=== PATIENT | male | born 1945 ===

== ENCOUNTER 2024-01-29 15:16 | Outpatient (AMB) | payer MEDICARE, OTHER, SELFPAY ==
[2024-01-29 15:28] VITALS: BP 168/76; PULSE 66; O2SAT 97; BMI 37.6
--- NOTE | 2024-01-29 15:28 | A.OFFVIS_ITS ---
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 In August of this year he underwent total knee replacement by Dr. Wong. Next day after the procedure he was taken to the shower by the certified nursing assistant, unfortunately he was left in his shower unattended, he lost his consciousness and fell out of his wheelchair. He hit the wall and he fractured his femur on the right and after that he had interim medullary vanessa and plate and screws to fix the femur fracture. The patient reports intractable right knee pain since then. She reports minimal mobility of his knee. She reports that he is unable to stand on the right leg. He also reports lower back pain with radiation into the left lower extremity to the level of the left knee but not below that level. He was under care of [facility] where he received several steroid injections into the facet joints. He is scheduled in 2 weeks for yet another facet joint injection. He denied any help from previous facet joint injections. He reports that when he lies down his pain is slightly better. However when he positioned himself sitting or standing his pain is 10/10. He can sleep normally but he can not do activities of daily living can not take care of himself can not function normally. Movements aggravate his pain. He needs walker for minimal ambulation he prefers to use wheelchair because of severe pain. The pain is most severe in the night, the pain in the back is most severe in the morning. He reports flexing forward aggravates pain in the back. In terms of tissue damage he reports his pain is pulsing, throbbing, pounding, stabbing, lancinating, sharp, cutting, lacerating, punishing, killing. He completed multiple sessions of physical therapy. He denies any help from physical therapy. He has stationary bicycle at home and he attempts to exercise on the bicycle however he reports that severe pain in knee prevents him from doing so. He is being prescribed by his primary care physician Dr. Martin multiple medications including Dilaudid 2 mg and buprenorphine patch 7.5 micro g he denies effectiveness of this medications for his pain. He also is taking gabapentin 600 mg t.i.d., he denies the help from this pain. His past medical history significant for coronary artery disease he had a heart attack and history of stents in 2019. He is diabetic and he is on metformin b.i.d. he also has widespread arthritis. Past surgical history significant for stent placement, left knee replacement in 2019 right knee replacement in 2023 following immediate ORIF of femur fracture in the same year. He denies smoking cigarettes does not drink alcohol he denies caffeinated beverages and he denies recreational drugs. [facility] Medical History (Updated 01/29/24 @ 16:21 by Antwon Cat MD) Chronic pain of right knee Atherosclerosis of aorta Type 2 diabetes mellitus with hyperglycemia, with long-term current use of insulin Surgical History (Updated 01/29/24 @ 16:20 by Antwon Cat MD) Total knee replacement status Review of Systems Const Reports no additional complaints ENT Reports Normal hearing present Card Reports as per HPI Resp Reports no additional complaints GI Reports no additional complaints Reports no additional complaints Musc Reports as per HPI Neuro Reports no additional complaints, Reports Normal hearing present, Denies Abnormal speech present, Denies confusion and Denies Sensory deficit (Neuro) Psych Reports no additional complaints and Denies confusion Endo Reports as per HPI Mina/Lymph Reports no additional complaints and Reports other (Patient is currently on Eliquis but he can not stop this Eliquis for the pr) Physical Exam Vital Signs: Last Vital Signs Pulse 66 01/29/24 15:28 BP 168/76 H 01/29/24 15:28 Pulse Ox 97 01/29/24 15:28 Oxygen Delivery Method Room Air 01/29/24 15:28 BMI result Body Mass Index 37.6 Const General: no acute distress; No confusion Nutritional Appearance: well nourished and overweight Orientation/consciousness: patient oriented x3 and No confusion Limitations: physical limitations, ambulation with walker and wheelchair Eyes General: appearance normal, both eyes and all related structures Pupils: Equal, round and reactive pupils present EOM: EOMs intact bilaterally Neck Neck: Yes full ROM Chest Chest palpation & inspection: normal inspection of the chest Resp Effort & Inspection: normal respiratory effort, able to speak in complete sentences, normal respiratory pattern, no audible wheezes and no cough Cardio Jugular venous distension: no JVD GI Inspection: Yes normal to inspection Neuro General: patient oriented x3, gait normal and No confusion Cranial nerves: Yes CN's II-XII intact bilaterally, Yes Equal, round and reactive pupils present, Yes Normal hearing present and Yes Ability to bilaterally elevate shoulders present Speech: No Abnormal speech present Gait exam (Neuro): Normal gait present Motor exam (neuro): 5/5 motor strength present throughout Sensory Exam: No Sensory deficit (Neuro) Extrem Other: Both knees on inspection similar in appearance. Slight skin edema could be noted on the right knee. No redness no swelling no pathological discharge the both scars very well-healed. Range of motion of the right knee is severely limited to no more than 90 degrees. Severe tenderness on palpation in projection of the lateral and inferior patellar area. General: No pedal edema Psych Speech and movement: Normal speech and movement present Affect: normal affect Attitude: cooperative Thought process: Normal thought process present Thought content: Normal thought content present Insight: Good insight present (Psych) Judgement: Good judgement present (Psych) Assessment & Plan Assessment & Plan (1) Spondylosis of lumbar region without myelopathy or radiculopathy: Code(s): M47.816 - Spondylosis without myelopathy or radiculopathy, lumbar region Category: Medical (2) Right knee pain: Code(s): M25.561 - Pain in right knee Category: Medical (3) Status post total knee replacement, right: Code(s): Z96.651 - Presence of right artificial knee joint Category: Surgical (4) Status post closed fracture of right femur: Code(s): Z87.81 - Personal history of (healed) traumatic fracture Category: Medical (5) Chronic pain syndrome: Code(s): G89.4 - Chronic pain syndrome Category: Medical Plan We agreed that I will start the treatment of this patient from genicular nerve block. The genicular nerve block will be scheduled without sedation on the right. If genicular nerve block will not help this patient does I will attempt to perform femoral nerve block in the attempt to alleviate his knee pain. If this will not be helpful for his pain control spinal cord stimulator Vine could be imply at the right lateral lumbar gutter to help his pain in the right knee Patient Instructions: I here by testify that I spent 48 minutes in conversation with this patient as well as planning his care and organizing this note. Coding Level of Care Code New Pt Level 4 (84585) Diagnoses Spondylosis of lumbar region without myelopathy or radiculopathy M47.816 Right knee pain M25.561 Status post total knee replacement, right Z96.651 Status post closed fracture of right femur Z87.81 Chronic pain syndrome G89.4
--- OUTSIDE RECORDS SUMMARY | 2024-02-04 20:58 | XMS_ITS | Continuity of Care Document ---
Author Organization [facility] Address [address] [place] [address] [place] [address]- Care Team Providers Care Pad Cutter Name Role Phone Not on Staff, PCP Primary Care Physician Unavail able [place] [facility] [place] 12/23/23 - 01/22/24 [facility] [address] [place] [address] Drive [address] [place] [address]- Encounter Type: Triage Allergies, Adverse Reactions, Alerts Substance Criticality Severity Reaction Reaction Severity Status penicillin Active Medications acetaminophen 325 mg oral tablet 975 mg, By Mouth, Every 6 hours, PRN, Refills 0, Maintenance, Pain , Mild, 05/13/19 10:08:00 AM EDT Start Date: 05/13/19 Status: Ordered Repeat number: 1 atorvastatin 40 mg oral tablet 1 tablet = 40 mg, TAKE 1 TABLET BY MOUTH NIGHTLY AT BEDTIME Start Date: 11/22/21 Status: Ordered Repeat number: 1 duloxetine 60 mg oral enteric coated capsule TAKE 1 CAPSULE BY MOUTH EVERY DAY Start Date: 11/22/21 Status: Ordered Repeat number: 1 Eliquis 5 mg oral tablet TAKE 1 TABLET BY MOUTH TWICE A DAY Start Date: 11/22/21 Status: Ordered Repeat number: 1 furosemide 20 mg oral tablet 20 mg, 1, tablet, By Mouth, Daily, Refills 0, Maintenance, 01/23/23 4:38:00 PM EST, Partial fill upon patient request if the prescription is for a schedule II opioid drug. Start Date: 01/23/23 Status: Ordered Repeat number: 1 Gabapentin By Mouth, 0 Refills, Maintenance, 12/12/23 1:52:00 PM EDT, Partial fill upon patient request if theprescription is for a schedule II opioid drug. Start Date: 12/12/23 Status: Ordered Repeat number: 1 Glucosamine By Mouth, 0 Refills, Maintenance, 12/12/23 1:53:00 PM EDT, Partial fill upon patient request if theprescription is for a schedule II opioid drug. Start Date: 12/12/23 Status: Ordered Repeat number: 1 hydrochlorothiazide 25 mg oral tablet 25 mg, 1, tablet, TAKE 1 TABLET BY MOUTH EVERY DAY Start Date: 11/22/21 Status: Ordered Repeat number: 1 Jardiance 10 mg oral tablet TAKE 1 TABLET BY MOUTH EVERY DAY Start Date: 11/22/21 Status: Ordered Repeat number: 1 MetFORMIN (Eqv-Glucophage XR) 500 mg oral tablet, extended release TAKE 1 TABLET BY MOUTH TWICE A DAY Start Date: 11/22/21 Status: Ordered Repeat number: 1 Multi Vitamin+ 0 Refills, Maintenance, 01/23/23 4:37:00 PM EST, Partial fill upon patient request if the prescription is for a schedule II opioid drug. Start Date: 01/23/23 Status: Ordered Repeat number: 1 [place]-3 Fish Oil By Mouth, 0 Refills, Maintenance, 01/23/23 4:38:00 PM EST, Partial fill upon patient request if theprescription is for a schedule II opioid drug. Start Date: 01/23/23 Status: Ordered Repeat number: 1 Simvastatin By Mouth, Daily before dinner, 0 Refills, Maintenance, 12/12/23 1:53:00 PM EDT, Partial fill upon patient request if the prescription is for a schedule II opioid drug. Start Date: 12/12/23 Status: Ordered Repeat number: 1 tamsulosin 0.4 mg oral capsule TAKE 1 CAPSULE BY MOUTH EVERYDAY AT BEDTIME Start Date: 11/22/21 Status: Ordered Repeat number: 1 traZODone 50 mg oral tablet 50 mg, 1, tablet, TAKE 1 TO 2 TABLETS BY MOUTH AT BEDTIME NEEDED Start Date: 11/22/21 Status: Ordered Repeat number: 1 Viagra 100 mg oral tablet 1 tablet = 100 mg, By Mouth, Daily, 0 Refills, Maintenance, 01/23/23 4:39:00 PM EST, Partial fill upon patient request if the prescription is for a schedule II opioid drug. Start Date: 01/23/23 Status: Ordered Repeat number: 1 Vitamin D3 oral tablet 1 tablet = 10 mcg, By Mouth, Daily, 0 Refills, Maintenance, 01/23/23 4:38:00 PM EST, Partial fill upon patient request if the prescription is for a schedule II opioid drug. Start Date: 01/23/23 Status: Ordered Repeat number: 1 Problem List Condition Confirmation Course Effective Dates Status Health St atus Informant Obese class II Confirmed Active Social History Social History Type Response Smoking Status Former smoker, quit more than 30 days ago; Tobacco user in household: No; Type: Cigarettes; Other: Quit 1979; entered on: 08/18/19 Sex Sex Representation Male (finding) Patient Care team information Care Team Personnel Name: Octavia Banda RN Position: [facility] SN RN Member Role: Primary Care Nurse Name: Jesús Pinto MD Position: [facility] Renal MD Member Role: Lifetime Consulting Physician Address: [address] [place] [address] [address] [place] [address]- Telecom: Name: Easton Akers RN Position: [facility] RN Member Role: Primary Care Nurse Name: Kimberly Thompson RN Position: [facility] [place] No Tools Member Role: Primary Care Nurse Name: Not on Staff, PCP Position: [facility] Physician (General Medicine) Member Role: PCP Name: Yue Barney RN Position: [facility] RN Member Role: Primary Care Nurse Care Team Related Persons Name: MAZIN EPPERSON Insurance Providers Guarantor name: MARTINA GRANTPAPITO Health Plan Information #: 1 Payer: MEDICARE PART B OUTPT Member Number: NA Policy Number: NA Group Number: NA Health Plan Information #: 2 Payer: [facility] Member Number: NA Policy Number: NA Group Number: NA
--- OUTSIDE RECORDS SUMMARY | 2024-02-04 20:58 | XMS_ITS | Continuity of Care Document ---
Author Organization [facility] Address [address] [place], [place] [address]ru[address]ina elina, [address] [place] [address]- Care Team Providers Care Dock Operator Name Role Phone Not on Staff, PCP Primary Care Physician Unavail able Encounter [facility] [place](s[place] 12/12/23 - 01/11/24 [facility] [address] [place] [address] [address] [place], [place] [address] Attending Physician: Micha Morgan Admitting Physician: Micha Morgan Referring Physician: Micha Morgan Referring Physician: Orquidea Mg Encounter Type: Triage Allergies, Adverse Reactions, Alerts [...] Date: 01/23/23 Status: Ordered Repeat number: 1 [place]-3 Fish Oil By Mouth, 0 Refills, Maintenance, [...] on: 08/18/19 Sex Sex Representation Male (finding) Radiology * Event Display: MRI Spine, Non- Authored Date: * Event Display: MRI Spine, Non- BH Authored Date: * Event Display: X-Ray Hip/Groin, Non- Authored Date: * Event Display: X-Ray Hip/Groin, Non- Authored Date: Patient Care team information Care Team Personnel Name: Octavia Banda RN Position: [facility] SN RN Member Role: Primary Care Nurse Name: Jesús Pinto MD Position: [facility] Renal MD Member Role: Lifetime Consulting Physician Address: [address] [place] [address] [address] [facility] [place] [id number] Telecom: Name: Easton Akers RN Position: [facility] RN Member Role: Primary Care Nurse Name: Kimberly Thompson RN Position: [facility] [place] No Tools Member Role: Primary Care Nurse Name: Not on Staff, PCP Position: [facility] Physician (General Medicine) Member Role: PCP Name: Yue Barney RN Position: [facility] RN Member Role: Primary Care Nurse Care Team Related Persons Name: MAZIN EPPERSON Insurance Providers Guarantor name: MARTINA EPPERSON Health Plan Information #: 1 Payer: MEDICARE PART B OUTPT Member Number: NA Policy Number: NA Group Number: NA Health Plan Information #: 2 Payer: [facility] Member Number: NA Policy Number: NA Group Number: NA
== END 2024-01-29 16:20 | disposition home or self-care (01) ==
PROVIDERS: PCP Family Medicine; Visit Provider Anesthesiology
DX: M47.816 Spondylosis without myelopathy or radiculopathy, lumbar region (principal); M25.561 Pain in right knee; Z96.651 Presence of right artificial knee joint; Z87.81 Personal history of (healed) traumatic fracture; G89.4 Chronic pain syndrome
CPT/HCPCS: 99204

== ENCOUNTER → 2024-01-29 15:16 | Outpatient (BNVA) | payer MEDICARE, OTHER, SELFPAY | PROVIDERS: PCP Family Medicine; Visit Provider Anesthesiology | DX: M25.561 Pain in right knee (principal); G89.4 Chronic pain syndrome; M47.816 Spondylosis without myelopathy or radiculopathy, lumbar region; Z87.81 Personal history of (healed) traumatic fracture; Z96.651 Presence of right artificial knee joint | CPT/HCPCS: 99202 ==

== ENCOUNTER 2024-04-21 06:42 | Outpatient (REF) | payer MEDICARE, OTHER, SELFPAY ==
--- NOTE | ~2024-04-21 | FL_ITS ---
EXAMINATION: XR FLUOROSCOPY WITH IMAGES CLINICAL INFORMATION: Right knee pain. Pain management procedure. COMPARISON: None available. TECHNIQUE: Fluoroscopy provided to: Dr. Cat Fluoroscopy time: 0.1 minutes DAP: 0.0358 mGycm2 Images: 2 FINDINGS: 2 images obtained during what appears to be the injection of as pes bursa, right knee. FL/FL guidance in treatment room IMPRESSION: Fluoroscopic guidance. Electronically signed by: Francisco Javier Delaney MD 04/22/2024 01:36 PM IVAN
== END 2024-04-21 06:43 | disposition home or self-care (01) ==
LOC: CF 06:42
PROVIDERS: Visit Provider Anesthesiology
DX: T84.84XA Pain due to internal orthopedic prosthetic devices, implants and grafts, initial encounter (principal); G89.4 Chronic pain syndrome; Z96.651 Presence of right artificial knee joint; Z87.81 Personal history of (healed) traumatic fracture
CPT/HCPCS: 64450; 64454; J0736; J2003; J2795

== ENCOUNTER 2024-04-21 14:24 | Outpatient (AMB) | payer MEDICARE, OTHER, SELFPAY ==
--- NOTE | 2024-04-21 14:31 | MHC.OFFVIS ---
Vital Signs 04/21/24 14:57 04/21/24 16:10 BP 125/65 156/69 H Blood Pressure Location Rt brachial Rt brachial Position Sitting Sitting Pulse 82 72 Pulse Source Pulse Oximeter Pulse Oximeter Pulse Oximetry (%) 96 100 Oxygen Delivery Method Room Air Room Air Comment Pre-Op Post-Op Intake Visit Reasons: RIGHT DIAGNOSTIC GENICULAR NERVE BLOCK Allergies No Known Allergies Allergy (Verified 01/29/24 15:28) PFSH Medical History (Updated 01/29/24 @ 16:21 by Antwon Cat MD) Chronic pain of right knee Atherosclerosis of aorta Type 2 diabetes mellitus with hyperglycemia, with long-term current use of insulin Surgical History (Updated 01/29/24 @ 16:20 by Antwon Cat MD) Total knee replacement status Physical Exam Vital Signs: Last Vital Signs Pulse 82 04/21/24 14:57 BP 125/65 04/21/24 14:57 Pulse Ox 96 04/21/24 14:57 Oxygen Delivery Method Room Air 04/21/24 14:57 Assessment & Plan Assessment & Plan (1) Chronic pain syndrome: Code(s): G89.4 - Chronic pain syndrome Category: Medical (2) Status post closed fracture of right femur: Code(s): Z87.81 - Personal history of (healed) traumatic fracture Category: Medical (3) Status post total knee replacement, right: Code(s): Z96.651 - Presence of right artificial knee joint Category: Surgical (4) Right knee pain: Code(s): M25.561 - Pain in right knee Category: Medical Plan Infrapatellar saphenous genicular nerve block. Patricio is very pleasant 78 years old gentleman who presented today in the operating room for performance of the right lower extremity genicular nerve blocks. He is suffering from severe debilitating pain in the left knee after he received total knee replacement, fell on his knee immediately after the procedure and fractured his distal femur and went for repair of the femur fracture with lateral plate and screws. Because of the presence of the extensive hardware in his knee we administered 900 mg of clindamycin approximately 30 minutes before the procedure intravenously. Informed consent was thoroughly explained to the patient before the procedure.? The patient came to the operating room.? He was positioned supine on operating table with a gel roll under his right lower extremity.? Time-out was performed delineating correct site and side of the procedure, nature of the injection, name and date of of the patient. Anterior lateral and medial surfaces of the knee and adjacent areas of the hip and lower leg were prepped with ChloraPrep and draped with sterile self adhesive utility towels.? C-arm was brought over the operating field the picture of the right knee was demonstrated on the screen. Unfortunately suprapatellar saphenous and lateral genicular nerve presumable locations were obscured by hardware plate and the screws which was positioned alongside lateral surface or the lower femur with the screws projecting through the entire thickness of the lower femur bone and protruding on the medial surface of the femur bone. this hardware made impossible to perform suprapatellar saphenous nerve block and lateral genicular nerve block. The decision was made to perform infrapatellar saphenous nerve block only. The point of interest was delineated as confluence of the silhouette of the medial diaphysis of the tibia with metaphysis and epiphysis of the medial tibia. The projection of the point of interest to the skin was injected with small amount of lidocaine 2% mixed with ropivacaine 0.5%. After that 22 gauge 3-1/2 inch needle was inserted through the skin wheal and it was advanced toward the bone surface under anterior posterior and lateral views. When on lateral view the tip of the needle was positioned in mid shaft of the projection of the bone injection of the ropivacaine 0.5% 2 cc was performed into the needle. Upon completion of the injection the needle was removed sterile Band-Aid was applied. The patient was tolerating procedure well. Orders: Orders FL guidance in treatment room Today M25.561 - Pain in right knee Coding Level of Care Code Procedure Only Diagnoses Chronic pain syndrome G89.4 Status post closed fracture of right femur Z87.81 Status post total knee replacement, right Z96.651 Right knee pain M25.561
[2024-04-21 14:57] VITALS: BP 125/65; PULSE 82; O2SAT 96
[2024-04-21 16:10] VITALS: BP 156/69; PULSE 72; O2SAT 100
--- OUTSIDE RECORDS SUMMARY | 2024-04-21 18:04 | XMS_ITS | Clinical Summary ---
Author Organization [employer] Address [address] [place] [address] [address] [place] [address] Care Team Providers Care Fusing Furnace Loader Name Role Phone Unavailable Primary Care Provider Unavailabl e Social History Tobacco Use Types Packs/Day Years Used Date Smoking Tobacco: Never Assessed Sex and Gender Information Value Date Recorded Sex Assigned at Male 08/26/2023 12:54 PM EDT Legal Sex Male 12:53 PM EDT Gender Identity Male 08/26/2023 12:54 PM EDT Sexual Orientation Straight 08/26/2023 12 :54 PM EDT Plan of Treatment Health Maintenance Due Date Last Done Comments Dental Oral Exam 1946 Dental Prophylaxis 1946 Dental X-Ray: Bitewings 1946 Dental X-Ray: Full Mouth 1946 Depression Screening 1946 Lipid Panel 1946 SDOH Screening 1946 Alcohol/Substance Use Screening 1958 Tobacco Screening 1958 Hepatitis C Screening 1964 RSV Patients and Patients Aged 60 years or older (1 - 1-dose 75+ series) 2021 DTaP/Tdap/Td Vaccines (2 - Td or Tdap) 06/19/2023 06/18/2013 COVID-19 Vaccine ( season) 2023 05/09/2023, 11/20/2022, 07/02/2022, Additional history exists Influenza Vaccine (#1) 2023 , 12/06/2020, 12/06/2020, Additional history exists Pneumococcal Vaccine: 50+ Years Completed 10/25/2014, 06/18/2013 Zoster Vaccines Completed 09/28/2019, 03/29, 07/15/2011 HIB Vaccines Aged Out No longer eligi ble based on patient's age to complete this topic HPV Vaccines Aged Out No longer eligi ble based on patient's age to complete this topic Hepatitis A Vaccines Aged Out No long er eligible based on patient's age to complete this topic Hepatitis B Vaccines Aged Out No long er eligible based on patient's age to complete this topic IPV Vaccines Aged Out No longer eligi ble based on patient's age to complete this topic Meningococcal Vaccine Aged Out No jhoana beltran eligible based on patient's age to complete this topic RSV under 20 months Aged Out No longe r eligible based on patient's age to complete this topic Rotavirus Vaccines Aged Out No longer eligible based on patient's age to complete this topic Insurance [place]IC[place] [address] [place] [id number]
== END 2024-04-21 16:11 | disposition home or self-care (01) ==
LOC: HO.PMCPRC 14:24
PROVIDERS: PCP Family Medicine; Visit Provider Anesthesiology
DX: M25.561 Pain in right knee (principal); G89.4 Chronic pain syndrome; Z87.81 Personal history of (healed) traumatic fracture; Z96.651 Presence of right artificial knee joint
CPT/HCPCS: 64454

== ENCOUNTER 2024-04-27 15:07 | Outpatient (AMB) | payer MEDICARE, OTHER, SELFPAY ==
--- NOTE | 2024-04-27 15:15 | A.OFFVIS_ITS ---
Vital Signs 04/27/24 15:20 Height 5 ft 7 in BMI Reason not done Patient refused/unable BP 178/80 H Blood Pressure Location Rt brachial Position Sitting Pulse 80 Pulse Source Pulse Oximeter Intake Visit Reasons: RIGHT DIAGNOSTIC GENICULAR NERVE BLOCK Intake Note: Pain today 10/10 Sales Marketing Coordinator Required: No Accompanied by: Other Relationship Allergies No Known Allergies Allergy (Verified 04/27/24 15:19) HPI Comments Details: Patricio (Klip) is back in my office after diagnostic genicular/ infrapatellar saphenous nerve block. It was the only nerve available to be injected after examination of the hardware in his knee under x-ray. The procedure gave patient overall some pain relief however it was not more than 50%. We discussed today possibility of treating his pain with stimulation of the femoral nerve. I explained to him that I need to perform femoral nerve or saphenous nerve block in the adductor canal in the order to test those possibilities. Alternatively treatment with spinal cord stimulation for this patient is suffering from Complex regional pain syndrome of the right lower extremity after extensive surgery on his right knee and femur fractures seem to be appropriate way of treating his pain. Prior: complains on severe pain in the right knee. In August of this year he underwent total knee replacement by Dr. Wong. Next day after the procedure he was taken to the shower by the nursing admin, unfortunately he was left in his shower unattended, he lost his consciousness and fell out of his wheelchair. He hit the wall and he fractured his femur on the right and after that he had plate and screws to fix the femur fracture. The patient reports intractable right knee pain since then. She reports minimal mobility of his knee. She reports that he is unable to stand on the right leg. He also reports lower back pain with radiation into the left lower extremity to the level of the left knee but not below that level. He was under care of [facility] where he received several steroid injections into the facet joints. He is scheduled in 2 weeks for yet another facet joint injection. He denied any help from previous facet joint injections. He reports that when he lies down his pain is slightly better. However when he positioned himself sitting or standing his pain is 10/10. He completed multiple sessions of physical therapy. He denies any help from physical therapy. He has stationary bicycle at home and he attempts to exercise on the bicycle however he reports that severe pain in knee prevents him from doing so. On Eliquis for cardiac problems. [facility] Medical History (Updated 04/27/24 @ 15:53 by Antwon Cat MD) Chronic pain of right knee Atherosclerosis of aorta Type 2 diabetes mellitus with hyperglycemia, with long-term current use of insulin Surgical History (Updated 01/29/24 @ 16:20 by Antwon Cat MD) Total knee replacement status Review of Systems Const All systems reviewed & are unremarkable except as noted in HPI and below ENT Reports Normal hearing present Neuro Reports Normal hearing present, Denies Abnormal speech present, Denies confusion and Denies Sensory deficit (Neuro) Psych Denies confusion Physical Exam Vital Signs: Last Vital Signs Pulse 80 04/27/24 15:20 BP 178/80 H 04/27/24 15:20 Const General: no acute distress; No confusion Nutritional Appearance: well nourished and overweight Orientation/consciousness: patient oriented x3 and No confusion Limitations: physical limitations, ambulation with walker and wheelchair Eyes General: appearance normal, both eyes and all related structures Pupils: Equal, round and reactive pupils present EOM: EOMs intact bilaterally Neck Neck: Yes full ROM Chest Chest palpation & inspection: normal inspection of the chest Resp Effort & Inspection: normal respiratory effort, able to speak in complete sentences, normal respiratory pattern, no audible wheezes and no cough Cardio Jugular venous distension: no JVD GI Inspection: Yes normal to inspection Neuro General: patient oriented x3, gait normal and No confusion Cranial nerves: Yes CN's II-XII intact bilaterally, Yes Equal, round and reactive pupils present, Yes Normal hearing present and Yes Ability to bilaterally elevate shoulders present Speech: No Abnormal speech present Gait exam (Neuro): Normal gait present Motor exam (neuro): 5/5 motor strength present throughout Sensory Exam: No Sensory deficit (Neuro) Extrem Other: Both knees on inspection similar in appearance. Slight skin edema could be noted on the right knee. No redness no swelling no pathological discharge the both scars very well-healed. Range of motion of the right knee is severely limi joan to no more than 90 degrees. Severe tenderness on palpation in projection of the lateral and inferior patellar area. General: No pedal edema Psych Speech and movement: Normal speech and movement present Affect: normal affect Attitude: cooperative Thought process: Normal thought process present Thought content: Normal thought content present Insight: Good insight present (Psych) Judgement: Good judgement present (Psych) Assessment & Plan Assessment & Plan (1) Chronic pain syndrome: Code(s): G89.4 - Chronic pain syndrome Category: Medical (2) Status post closed fracture of right femur: Code(s): Z87.81 - Personal history of (healed) traumatic fracture Category: Medical (3) Status post total knee replacement, right: Code(s): Z96.651 - Presence of right artificial knee joint Category: Surgical (4) Right knee pain: Code(s): M25.561 - Pain in right knee Category: Medical (5) Complex regional pain syndrome of right lower extremity: Code(s): G90.521 - Complex regional pain syndrome I of right lower limb Category: Medical Plan The pain of the patient remains 10/10 any time he attempts to walk. When he is at rest his pain is 2 to 3/10. He wants to be active, he tries to exercise with recliner bicycle. However severe pain during the exercise does not allow him to exercise for a long time. He had extensive physical therapy. He continues to do home exercise programs after physical therapy. Infrapatellar saphenous/genicular nerve block resulted in pain improvement less than 50%. The pain diary is filed in the chart. I offered the patient femoral nerve block diagnostic in the order to prepare him for femoral nerve stimulation to help his pain. If the femoral nerve block will not result in good pain relief I will consider [place] scientific spinal cord stimulator in lumbar gutter positioned to treat Complex regional pain syndrome of the right lower extremity. Today I explained to him [facility] psychological evaluation brochure was given. They will be in contact with [facility] to schedule psychological evaluation. Patient Instructions: I here by testify that I spent 40 minutes in conversation with this patient as well as planning his care and organizing this note. Coding Level of Care Code Est Pt Level 5 (62695) Diagnoses Chronic pain syndrome G89.4 Status post closed fracture of right femur Z87.81 Status post total knee replacement, right Z96.651 Right knee pain M25.561 Complex regional pain syndrome of right lower extremity G90.521
[2024-04-27 15:20] VITALS: BP 178/80; PULSE 80
--- OUTSIDE RECORDS SUMMARY | 2024-04-27 18:02 | XMS_ITS | Clinical Summary ---
Author Organization [employer] Address [address] [place] [address] [address] [place] [address] Care Team Providers Care Tight Rope Walker Name Role Phone Unavailable Primary Care Provider [...] age to complete this topic Insurance [place] [address] [place] [phone]
== END 2024-04-27 15:41 | disposition home or self-care (01) ==
PROVIDERS: PCP Family Medicine; Visit Provider Anesthesiology
DX: G89.4 Chronic pain syndrome (principal); M25.561 Pain in right knee; Z87.81 Personal history of (healed) traumatic fracture; Z96.651 Presence of right artificial knee joint; G90.521 Complex regional pain syndrome I of right lower limb
CPT/HCPCS: 99215

== ENCOUNTER → 2024-04-27 15:08 | Outpatient (BNVA) | payer MEDICARE, OTHER, SELFPAY | PROVIDERS: PCP Family Medicine; Visit Provider Anesthesiology | DX: M25.561 Pain in right knee (principal); G90.521 Complex regional pain syndrome I of right lower limb; G89.4 Chronic pain syndrome; Z96.651 Presence of right artificial knee joint; Z87.81 Personal history of (healed) traumatic fracture | CPT/HCPCS: 99212 ==

== ENCOUNTER 2024-05-19 06:24 | Outpatient (REF) | payer MEDICARE, OTHER, SELFPAY | END 2024-05-19 06:25 | disposition home or self-care (01) | LOC: CF 06:24 | PROVIDERS: Visit Provider Anesthesiology | DX: G89.4 Chronic pain syndrome (principal); M25.561 Pain in right knee; G90.521 Complex regional pain syndrome I of right lower limb; Z96.651 Presence of right artificial knee joint; Z87.81 Personal history of (healed) traumatic fracture | CPT/HCPCS: 64447; J2795 ==

== ENCOUNTER 2024-05-19 12:39 | Outpatient (AMB) | payer MEDICARE, OTHER, SELFPAY ==
[2024-05-19 13:01] VITALS: BP 145/83; PULSE 67; O2SAT 98
--- NOTE | 2024-05-19 13:01 | MHC.OFFVIS ---
Vital Signs 05/19/24 13:01 05/19/24 13:21 BP 145/83 H 149/75 H Blood Pressure Location Lt brachial Lt brachial Position Sitting Sitting Pulse 67 65 Pulse Source Pulse Oximeter Pulse Oximeter Pulse Oximetry (%) 98 98 Oxygen Delivery Method Room Air Room Air Comment Pre-Procedure Post-Procedure Intake Visit Reasons: RIGHT DIAGNOSTIC FEMORAL NERVE BLOCK Allergies No Known Allergies Allergy (Verified 04/27/24 15:19) [facility] Medical History (Updated 04/27/24 @ 15:53 by Antwon Cat MD) Chronic pain of right knee Atherosclerosis of aorta Type 2 diabetes mellitus with hyperglycemia, with long-term current use of insulin Surgical History (Updated 01/29/24 @ 16:20 by Antwon Cat MD) Total knee replacement status Physical Exam Vital Signs: Last Vital Signs Pulse 67 05/19/24 13:01 BP 145/83 H 05/19/24 13:01 Pulse Ox 98 05/19/24 13:01 Oxygen Delivery Method Room Air 05/19/24 13:01 Assessment & Plan Assessment & Plan (1) Chronic pain syndrome: Code(s): G89.4 - Chronic pain syndrome Category: Medical (2) Status post closed fracture of right femur: Code(s): Z87.81 - Personal history of (healed) traumatic fracture Category: Medical (3) Status post total knee replacement, right: Code(s): Z96.651 - Presence of right artificial knee joint Category: Surgical (4) Right knee pain: Code(s): M25.561 - Pain in right knee Category: Medical (5) Complex regional pain syndrome of right lower extremity: Code(s): G90.521 - Complex regional pain syndrome I of right lower limb Category: Medical Plan Right femoral nerve block ultrasound-guided. After obtaining informed consent the patient was brought onto the examination bed, his anterior lateral right hip and right groin were prepped with ChloraPrep twice. Time-out was performed. Sterile self adhesive utility towels were used to delineate the filled. After the sterilely draped ultrasound probe was brought onto the field and picture of the femoral nerve and femoral artery were demonstrated on the screen. The 22 gauge 100 mm needle was stim was inserted extra anatomically next to the ultrasound probe in in plane fashion and was advanced to were the femoral nerve under live direct vision. When the tip of the needle was in the vicinity of the femoral nerve injection of the 2 cc of normal saline was performed demonstrating the spread of the fluid around the nerve. After that injection of the ropivacaine 0.5% mixed 6 cc was performed into the needles vicinity. Upon completion of the injection needle was withdrawn, sterile Band-Aid was applied. The patient tolerated the procedure well. Orders: Orders FL guidance in treatment room Today Z87.81 - Personal history of (healed) traumatic fracture Coding Level of Care Code Procedure Only Diagnoses Chronic pain syndrome G89.4 Status post closed fracture of right femur Z87.81 Status post total knee replacement, right Z96.651 Right knee pain M25.561 Complex regional pain syndrome of right lower extremity G90.521
[2024-05-19 13:21] VITALS: BP 149/75; PULSE 65; O2SAT 98
== END 2024-05-19 13:29 | disposition home or self-care (01) ==
LOC: HO.PMCPRC 12:39
PROVIDERS: PCP Family Medicine; Visit Provider Anesthesiology
DX: M25.561 Pain in right knee (principal); G89.4 Chronic pain syndrome; Z87.81 Personal history of (healed) traumatic fracture; Z96.651 Presence of right artificial knee joint; G90.521 Complex regional pain syndrome I of right lower limb
CPT/HCPCS: 64447

== ENCOUNTER 2024-05-25 15:12 | Outpatient (AMB) | payer MEDICARE, OTHER, SELFPAY ==
--- NOTE | 2024-05-25 15:16 | MHC.OFFVIS ---
Vital Signs 05/25/24 15:18 Height 5 ft 7 in BMI Reason not done Patient refused/unable BP 156/70 H Blood Pressure Location Lt brachial Position Sitting Respiration 16 Pulse 61 Pulse Source Pulse Oximeter Pulse Oximetry (%) 98 Oxygen Delivery Method Room Air Intake Visit Reasons: RIGHT DIAGNOSTIC FEMORAL NERVE BLOCK Wide Area Network Administrator Required: No Allergies No Known Allergies Allergy (Verified 05/25/24 15:20) Medication List - Last Reconciled 05/25/24 by Florencia Beltran LPN apixaban (Eliquis) 5 mg PO BID atorvastatin 40 mg PO DAILY fentanyl 25 mcg/hr 1 patch topical Q3D furosemide 20 mg PO DAILY lidocaine 5% 1 patch topical DAILY metformin ER 500 mg PO BID naloxone 4 mg/actuation intranasal sertraline 50 mg PO DAILY tamsulosin 0.8 mg PO DAILY HPI Comments Details: Patricio Padron) is back in my office after diagnostic femoral nerve block. He reported today that after femoral nerve block he received more than 55% pain relief for the next 24 hours after the procedure. He reported improved mobility for this 24 hours and he finally was able to move his right lower extremity on his own without the help of his . We discussed today possibility of treating his pain with PNS cure on X at femoral nerve positioned on the right. I also discussed with him possibility of treatment of his right knee pain with spinal cord stimulator [employer] positioned in lumbar gutter. We agreed that we will try Curonix PNS 1st. Results of genicular/ infrapatellar saphenous nerve block. It was the only nerve available to be injected after examination of the hardware in his knee under x-ray. The procedure gave patient overall some pain relief however it was not more than 50%. Prior: complains on severe pain in the right knee. In August of this year he underwent total knee replacement by Dr. Wong. Next day after the procedure he was taken to the shower by the nursing staffing coordinator, unfortunately he was left in his shower unattended, he lost his consciousness and fell out of his wheelchair. He hit the wall and he fractured his femur on the right and after that he had plate and screws to fix the femur fracture. The patient reports intractable right knee pain since then. She reports minimal mobility of his knee. She reports that he is unable to stand on the right leg. He also reports lower back pain with radiation into the left lower extremity to the level of the left knee but not below that level. He was under care of [facility] where he received several steroid injections into the facet joints. He is scheduled in 2 weeks for yet another facet joint injection. He denied any help from previous facet joint injections. He reports that when he lies down his pain is slightly better. However when he positioned himself sitting or standing his pain is 10/10. He completed multiple sessions of physical therapy. He denies any help from physical therapy. He has stationary bicycle at home and he attempts to exercise on the bicycle however he reports that severe pain in knee prevents him from doing so. On Eliquis for cardiac problems. [facility] Medical History (Updated 04/27/24 @ 15:53 by Antwon Cat MD) Chronic pain of right knee Atherosclerosis of aorta Type 2 diabetes mellitus with hyperglycemia, with long-term current use of insulin Surgical History (Updated 01/29/24 @ 16:20 by Antwon Cat MD) Total knee replacement status Review of Systems Const All systems reviewed & are unremarkable except as noted in HPI and below ENT Reports Normal hearing present Neuro Reports Normal hearing present, Denies Abnormal speech present, Denies confusion and Denies Sensory deficit (Neuro) Psych Denies confusion Physical Exam Vital Signs: Last Vital Signs Pulse 61 05/25/24 15:18 Resp 16 05/25/24 15:18 BP 156/70 H 05/25/24 15:18 Pulse Ox 98 05/25/24 15:18 Oxygen Delivery Method Room Air 05/25/24 15:18 Const General: no acute distress; No confusion Nutritional Appearance: well nourished and overweight Orientation/consciousness: patient oriented x3 and No confusion Limitations: physical limitations, ambulation with walker and wheelchair Eyes General: appearance normal, both eyes and all related structures Pupils: Equal, round and reactive pupils present EOM: EOMs intact bilaterally Neck Neck: Yes full ROM Chest Chest palpation & inspection: normal inspection of the chest Resp Effort & Inspection: normal respiratory effort, able to speak in complete sentences, normal respiratory pattern, no audible wheezes and no cough Cardio Jugular venous distension: no JVD GI Inspection: Yes normal to inspection Neuro General: patient oriented x3, gait normal and No confusion Cranial nerves: Yes CN's II-XII intact bilaterally, Yes Equal, round and reactive pupils present, Yes Normal hearing present and Yes Ability to bilaterally elevate shoulders present Speech: No Abnormal speech present Gait exam (Neuro): Normal gait present Motor exam (neuro): 5/5 motor strength present throughout Sensory Exam: No Sensory deficit (Neuro) Extrem Other: Both knees on inspection similar in appearance. Slight skin edema could be noted on the right knee. No redness no swelling no pathological discharge the both scars very well-healed. Range of motion of the right knee is severely limited to no more than 90 degrees. Severe tenderness on palpation in projection of the lateral and inferior patellar area. General: No pedal edema Psych Speech and movement: Normal speech and movement present Affect: normal affect Attitude: cooperative Thought process: Normal thought process present Thought content: Normal thought content present Insight: Good insight present (Psych) Judgement: Good judgement present (Psych) Assessment & Plan Assessment & Plan (1) Chronic pain syndrome: Code(s): G89.4 - Chronic pain syndrome Category: Medical (2) Status post closed fracture of right femur: Code(s): Z87.81 - Personal history of (healed) traumatic fracture Category: Medical (3) Status post total knee replacement, right: Code(s): Z96.651 - Presence of right artificial knee joint Category: Surgical (4) Right knee pain: Code(s): M25.561 - Pain in right knee Category: Medical (5) Complex regional pain syndrome of right lower extremity: Code(s): G90.521 - Complex regional pain syndrome I of right lower limb Category: Medical Plan The pain of the patient remains 10/10 any time he attempts to walk. Now he reports significant pain at rest as well. He wants to be active, he tries to exercise with recliner bicycle. However severe pain during the exercise does not allow him to exercise for a long time. He had extensive physical therapy. He continues to do home exercise programs after physical therapy. Infrapatellar saphenous/genicular nerve block resulted in pain improvement less than 50%. The pain diary is filed in the chart. Femoral nerve block resulted in more than 55% pain improvement for the 24 hours after the injection. After that the patient pain come back. He stated that he completed psychological evaluation. He wants to try Curonix PNS femoral nerve. Patient Instructions: I here by testify that I spent 40 minutes in conversation with this patient as well as planning his care and organizing this note. Coding Level of Care Code Est Pt Level 5 (32917) Diagnoses Chronic pain syndrome G89.4 Status post closed fracture of right femur Z87.81 Status post total knee replacement, right Z96.651 Right knee pain M25.561 Complex regional pain syndrome of right lower extremity G90.521
[2024-05-25 15:18] VITALS: BP 156/70; PULSE 61; RESP 16; O2SAT 98
--- OUTSIDE RECORDS SUMMARY | 2024-05-25 17:09 | XMS_ITS | Clinical Summary ---
Author Organization [employer] Address [address] [place] [address] [address] [place] [address] Care Team Providers Care Automotive Warranty Administrator Name Role Phone Unavailable Primary Care Provider [...] age to complete this topic Insurance [place] [address] [place] [phone]
== END 2024-05-25 15:44 | disposition home or self-care (01) ==
PROVIDERS: PCP Family Medicine; Visit Provider Anesthesiology
DX: G89.4 Chronic pain syndrome (principal); Z87.81 Personal history of (healed) traumatic fracture; Z96.651 Presence of right artificial knee joint; M25.561 Pain in right knee; G90.521 Complex regional pain syndrome I of right lower limb
CPT/HCPCS: 99215

== ENCOUNTER → 2024-05-25 15:12 | Outpatient (BNVA) | payer MEDICARE, OTHER, SELFPAY | PROVIDERS: PCP Family Medicine; Visit Provider Anesthesiology | DX: G89.4 Chronic pain syndrome (principal); M25.561 Pain in right knee; G90.521 Complex regional pain syndrome I of right lower limb; Z96.651 Presence of right artificial knee joint; Z87.81 Personal history of (healed) traumatic fracture; Z79.01 Long term (current) use of anticoagulants | CPT/HCPCS: 99212 ==